=== PATIENT | female | born 1955 | race Caucasian/White ===

== ENCOUNTER 2020-04-01 21:20 | Emergency (ER) | payer OTHER ==
--- NOTE | 2020-04-01 21:44 | PDOC ---
History of Present Illness - General History Source: Patient Exam Limitations: No Limitations - History of Present Illness Initial Comments: 04/01/20 21:40 35-year-old female no past medical history presents to virtual urgent care clinic for cover testing due to requirements from [facility] which she is traveling to this upcoming Wednesday. Patient denies smoking recent sick contacts current fever chills GI symptoms or URI symptoms Is this a multiple visit Asthma Patient?: No Associated Symptoms: reports: denies symptoms Past History - Travel History Traveled outside of the country in the last 30 days: No Close contact w/someone who was outside of country & ill: No - Psycho-Social/Smoking History Patient Lives Alone: No Lives with/in: parents Review of Systems - Review of Systems Able to Perform ROS?: No Is the patient limited Romanian proficient: No Constitutional: No: Symptoms Reported HEENTM: No: Symptoms Reported Respiratory: No: Symptoms reported Cardiac (ROS): No: Symptoms Reported ABD/GI: No: Symptoms Reported : No: Symptoms Reported Musculoskeletal: No: Symptoms Reported Integumentary: No: Symptoms Reported Neurological: No: Symptoms reported Endocrine: No: Symptoms Reported Hematologic/Lymphatic: No: Symptoms Reported *Physical Exam - Physical Exam General Appearance: Yes: Nourished, Appropriately Dressed. No: Apparent Distress HEENT: positive: EOMI Neck: positive: Supple Respiratory/Chest: negative: Respiratory Distress Gastrointestinal/Abdominal: negative: Distended Extremity: positive: Normal Range of Motion Integumentary: positive: Normal Color, Warm, Moist Neurologic: positive: Motor Strength 5/5 Medical Decision Making - Medical Decision Making 04/01/20 21:39 Chief complaint: Patient traveling abroad to [facility] requesting cover testing. Patient is asymptomatic. Exam: Limited due to virtual visit. Plan COVID testing ordered Discharge - Discharge Information Problems reviewed: Yes Clinical Impression/Diagnosis: Counseled about COVID-19 virus infection Condition: Good Disposition: HOME - Follow up/Referral Referrals: Muriel Santo MD [Primary Care Provider] - - Patient Discharge Instructions - Post Discharge Activity
== END 2020-04-01 22:50 | disposition home or self-care (01) ==
LOC: JVIRT 21:20
DX: Z11.59 Encounter for screening for other viral diseases (principal)
CPT/HCPCS: Q3014-GT; U0003

== ENCOUNTER 2023-10-16 14:40 | Emergency (ER) | payer OTHER ==
[2023-10-16 14:52] VITALS: BP 133/67; PULSE 98; RESP 19; TEMP 100.2; BMI 27.4
[2023-10-16] MEDS ORDERED: ACETAMINOPHEN 325 MG TABLET (FP) ONE (15:54)
[2023-10-16] MEDS ORDERED: AZITHROMYCIN 500 MG TABLET ONE (15:54)
[2023-10-16] MEDS: AZITHROMYCIN 250 MG TABLET PO ONE (15:55)
[2023-10-16] MEDS: ACETAMINOPHEN 325 MG TABLET (FP) PO ONE (15:55)
== END 2023-10-16 16:03 | disposition home or self-care (01) ==
LOC: FER 14:40
DX: R05.9 Cough, unspecified (principal); R50.9 Fever, unspecified; J40 Bronchitis, not specified as acute or chronic
CPT/HCPCS: 71046-TC-FY; 99283-25